=== PATIENT | female | born 2000 | race Caucasian/White ===

== ENCOUNTER 2024-10-29 00:36 | Emergency (ER) | payer MEDICAID ==
[~2024-10-29] VITALS: Ht 152.4 cm; Wt 45.0 kg
[2024-10-29 00:47] VITALS: BP 98/57; PULSE 66; RESP 16; TEMP 36.7; O2SAT 100
[2024-10-29 04:36] VITALS: TEMP 98.1
[2024-10-29] MEDS: ACETAMINOPHEN 325MG TABLET PO ONE (04:36)
== END 2024-10-29 06:19 | disposition home or self-care (01) ==
LOC: ER 00:36
DX: S81.012A Laceration without foreign body, left knee, initial encounter (principal); W19.XXXA Unspecified fall, initial encounter; Y93.89 Activity, other specified; Y92.89 Other specified places as the place of occurrence of the external cause; Y99.8 Other external cause status
CPT/HCPCS: 12001; 73060; 73120; 73560; 99284

== ENCOUNTER 2024-11-09 15:02 | Emergency (ER) | payer MEDICAID, OTHER ==
[~2024-11-09] VITALS: Ht 160 cm; Wt 44.0 kg
[2024-11-09 15:10] VITALS: TEMP 36.6; O2SAT 99
[2024-11-09] MEDS ORDERED: BO1 TP (15:21)
[2024-11-09 15:39] VITALS: BP 92/43; PULSE 63; RESP 16; O2SAT 100
== END 2024-11-09 15:43 | disposition home or self-care (01) ==
LOC: ER 15:02
DX: S81.012D Laceration without foreign body, left knee, subsequent encounter (principal); X58.XXXD Exposure to other specified factors, subsequent encounter
CPT/HCPCS: 99282